=== PATIENT | female | born 1960 | race Caucasian/White ===

== ENCOUNTER 2022-11-20 18:01 | Outpatient (CLI) | payer BC | END 2022-11-20 18:02 | disposition critical access hospital (66) | LOC: EMS 18:01 | DX: T63.441A Toxic effect of venom of bees, accidental (unintentional), initial encounter (principal) | CPT/HCPCS: A0425; A0427 ==

== ENCOUNTER 2022-11-20 18:30 | Emergency (ER) | payer BC ==
[2022-11-20] MEDS ORDERED: methylPREDNISolone SUCCINATE 125 MG/2 ML VIAL IVP STA (18:44)
--- NOTE | 2022-11-20 18:44 | ED Physician Documentation ---
History of Present Illness - Stated complaint Stated Complaint: BEE STING - Chief complaint Chief Complaint: Allergic Rx - Additonal information Additional information: 62-year-old female presents emergency department via EMS for evaluation after a bee sting injury. She self administered an dose of epinephrine when she was stung on her left hand. EMS placed an IV and gave 50 mg of Benadryl. Patient reports that she has not been stung by bee since she was a child but had anaphylaxis when she was a child. Patient has a history of Protein c deficiency. 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 At this time in the emergency department the patient is quiet but opens her eyes easily. She is a little shaky. States her throat feels dry and funny. She has some halting stuttering speech and a mild shake on her left arm. Review of Systems Constitutional: denies: Fever, Chills Nose: reports: Reviewed and negative Throat: reports: Reviewed and negative Cardiac: reports: Reviewed and negative Respiratory: reports: Reviewed and negative GI: reports: Reviewed and negative : reports: Reviewed and negative PD PAST MEDICAL HISTORY - Present Medications Home Medications: Ambulatory Orders Medication Instructions Recorded Confirmed EPINEPHrine [Epinephrine] 0.3 mg IJ ONCE PRN #1 each 11/20/22 predniSONE [Deltasone] 40 mg PO DAILY 3 Days #6 tablet 11/20/22 - Allergies Allergies/Adverse Reactions: Allergies Allergy/AdvReac Type Severity Reaction Status Date / Time codeine Allergy Anaphylaxis Verified 11/20/22 18:39 procaine [From Novocain] Allergy Anaphylaxis Verified 11/20/22 18:39 PD ED PE EXPANDED - General General: Alert, No acute distress - Cardiac Cardiac: Regular Rate (Sinus tachycardia on the monitor rate of 106), Radial strong equal, Pedal strong equal. No: Murmur Present - Respiratory Respiratory: Clear to ausultation alex. No: Distress, Labored - Abdomen Abdomen: Normal Bowel sounds. No: Tender to palpation - Neuro Neuro: Alert and Oriented X 3, CNII-XII intact - GCS Eye Opening: Spontaneous Motor: Obeys Commands Verbal: Oriented Total: 15 Results - Vitals Vitals: Vital Signs - 24 hr 11/20/22 11/20/22 18:36 18:39 Temperature 36.7 C 36.7 C Heart Rate 105 H 105 H Respiratory 14 14 Rate Blood Pressure 140/85 H 140/85 H O2 Saturation 97 97 Oxygen O2 Source Room air PD Medical Decision Making - ED course Complexity details: considered differential, d/w patient, d/w family ED course: 62-year-old female who has a history of protein C deficiency and previous strokes anticoagulated on Eliquis presents the emergency department via EMS after being stung by a bee on her left hand. She has a history of anaphylaxis to bee stings though her last bee sting envenomation was when she was a child. She did administer epinephrine into her left thigh. Prior to that she had begun to feel a fullness in her throat but had no facial tongue or lip swelling. On presentation to the emergency department she was quite jittery and had stuttered speech but had no focal neurodeficits. She was placed on the monitoring manager found to be in sinus rhythm normotensive with normal sats. With her history of strokes I did consider obtaining a CT scan however after about 20 minutes of observation the symptoms fully resolved. As such I did not feel that the stuttered speech was consistent with A stroke and was likely more consistent with Benadryl and epinephrine administration. She has been observed here in the emergency department for about 3 hours and has been nearly 4 since her epinephrine was administered and she is now returned to baseline. She did receive Pepcid as well as Solu-Medrol here in the emergency department will be discharged with a prescription for new EpiPen and several days of steroid. The usual emergent return precautions for failure symptoms to resolve or acutely worsen was discussed with the patient and her . Departure - Departure Disposition: 01 Home, Self Care Clinical Impression: Accidental bee sting, Hx of anaphylaxis Condition: Stable Record reviewed to determine appropriate education?: Yes Instructions: ED Bite Sting Insect Gen Allergic React Prescriptions: predniSONE [Deltasone] 40 mg PO DAILY 3 Days #6 tablet EPINEPHrine [Epinephrine] 0.3 mg IJ ONCE PRN #1 each PRN Reason: Anaphylaxis Comments: You were stung by bee on your left hand. You do have a history of anaphylaxis to bee stings. You did the right thing by injecting the epinephrine. I have written a prescription to refill your epinephrine pen. Over the next several days I do recommend that you take Benadryl 25 mg twice daily. You can also take Pepcid [id number] as an additional histamine shakira. You did receive a dose of IV steroid here in the emergency department and I am discharging you with an additional 3 days of steroids. You can fill these prescriptions at any pharmacy you choose with the prescription handed to you. In the future, should you have any be or hornet sting you do need to simply immediately inject the epinephrine to prevent anaphylaxis. You should then call 911 and come to any ER. Return to the ER if you develop any tongue or mouth or neck swelling, develop hives, have chest pain or difficulty breathing. Forms: PCP List
[2022-11-20] MEDS ORDERED: FAMOTIDINE 20 MG TABLET PO STA (18:45)
[2022-11-20] MEDS ORDERED: SODIUM CHLORIDE 0.9% 1,000 ML IV STA (18:45)
[2022-11-20 21:41] VITALS: BP 127/73; O2SAT 98
== END 2022-11-20 21:41 | disposition home or self-care (01) ==
LOC: ED 18:30
DX: T63.441A Toxic effect of venom of bees, accidental (unintentional), initial encounter (principal); Z79.01 Long term (current) use of anticoagulants
CPT/HCPCS: 96361; 96374; 99284; A9270